=== PATIENT | female | born 1990 | race Two or more races ===

== ENCOUNTER 2024-05-25 08:54 | Emergency (ER) | payer MEDICAID, SELFPAY ==
[2024-05-25 08:59] VITALS: BP 137/84; PULSE 115; RESP 19; TEMP 36.9; O2SAT 100; BMI 27.8
--- NOTE | 2024-05-25 10:02 | EDNOTE_ITS ---
ED Back Injury Pain RME/HPI General Chief Complaint: Back Pain/Injury Stated Complaint: BACK PAIN X 1 DAY; PREG 3 MOS, Time Seen by Provider: 05/25/24 08:57 Source: patient Arrival date/time: 05/25/24 08:54 33-year-old female with no known medical history presents to the emergency room with a chief complaint of lower back pain x 1 day, nausea, vomiting. Patient is currently 12 weeks . She is G4, P3. Patient denies any abdominal cramping, abdominal tenderness, pelvic pain, vaginal bleeding, dysuria. Mode of arrival: ambulatory Limitations: no limitations Related Data Previous Rx's ?Medication ?Instructions ?Recorded acetaminophen 325 mg capsule 650 mg (2 x 325 mg) PO QI D PRN 05/25/24 fever or pain 7 days #30 caps ondansetron 4 mg disintegrating 4 mg PO Q8H PRN nausea and 05/25/24 tablet vomiting #21 tabs Allergies Allergy/AdvReac Type Severity Reaction Status Date / Time No Known Allergies Allergy Verified 05/25/24 09:02 Review of Systems Review of Systems Systems Reviewed: All systems reviewed, normal except as documented Constitutional Constitutional: Reports system reviewed and no additional complaints, except as documented, Denies fatigue, Denies fever(s), Denies headache(s) and Denies weakness Eyes Eyes: Reports system reviewed and no additional complaints, except as documented, Denies blurry vision and Denies change in vision ENT Ears, Nose, Mouth, and Throat: Reports system reviewed and no additional complaints, except as documented, Denies otalgia, Denies headache(s), Denies nasal congestion, Denies throat swelling and Denies vertigo Cardiovascular Cardiovascular: Reports system reviewed and no additional complaints, except as documented, Denies chest pain, Denies dyspnea and Denies dyspnea on exertion Respiratory Respiratory: Reports system reviewed and no additional complaints, except as documented, Denies chest congestion, Denies cough, Denies dyspnea, Denies dyspnea on exertion and Denies wheezing Gastrointestinal Gastrointestinal: Reports system reviewed and no additional complaints, except as documented, Denies abdominal pain, Denies cramping, Denies nausea and Denies vomiting Genitourinary Genitourinary: Reports system reviewed and no additional complaints, except as documented Musculoskeletal Musculoskeletal: Reports system reviewed and no additional complaints, except as documented and Denies back pain Integumentary/Breasts Skin/Breast: Reports system reviewed and no additional complaints, except as documented and Denies wounds Neurologic Neurologic: Reports system reviewed and no additional complaints, except as documented, Denies confusion, Denies headache(s), Denies lack of coordination, Denies vertigo and Denies weakness Psychiatric Psychiatric: Reports system reviewed and no additional complaints, except as documented, Denies anxiety, Denies confusion, Denies depression, Denies paranoia, Denies suicidal ideation and Denies tactile hallucinations Endocrine Endocrine: Reports system reviewed and no additional complaints, except as documented and Denies fatigue Hematologic/Lymphatic Hematologic/Lymphatic: Reports system reviewed and no additional complaints, except as documented and Denies lymphadenopathy Allergic/Immunologic Allergic/Immunologic: Reports system reviewed and no additional complaints, except as documented, Denies throat swelling, Denies urticaria and Denies wheezing Past Medical History Social History SMOKING STATUS: Never smoker ED Exam General Limitations: Present no limitations General appearance: Present alert and in no apparent distress Head Head exam: Present atraumatic Eye Eye exam: Present normal appearance, PERRL and EOMI ENT ENT exam: Present normal exam, normal oropharynx and mucous membranes moist Neck Neck exam: Present normal inspection, full ROM and trachea midline Chest Chest inspection: Present normal inspection and symmetric chest wall rise Respiratory Respiratory exam: Present normal lung sounds bilaterally Cardiovascular Cardiovascular exam: Present regular rate, normal rhythm and normal heart sounds Abdominal Exam Abdominal exam: Present soft and normal bowel sounds Extremities Exam Extremities exam: Present normal inspection and full ROM Back Exam Back exam: Present normal inspection and full ROM Neurological Exam Neurological exam: Present alert, oriented X3 and CN II-XII intact Psychiatric Psychiatric exam: Present normal affect and normal mood Skin Skin exam: Present warm, dry, intact and normal color Course Quality Measures none Vital Signs Vital signs: Vital Signs Temperature 98.4 F 05/25/24 08:59 Pulse Rate 115 H 05/25/24 08:59 Respiratory Rate 19 05/25/24 08:59 Blood Pressure 137/84 H 05/25/24 08:59 Pulse Oximetry (%) 100 05/25/24 08:59 Oxygen Delivery Method Room Air 05/25/24 08:59 Back Pain / Injury MDM Narrative MDM Narrative:: 33-year-old female with no known medical history presents to the emergency room with a chief complaint of lower back pain x 1 day, nausea, vomiting. Patient is currently 12 weeks . She is G4, P3. Patient denies any abdominal cramping, abdominal tenderness, pelvic pain, vaginal bleeding, dysuria. Patient is hemodynamically stable and in no apparent distress Physical examination shows lumbar pain and tenderness to the vertebrae. Patient denies any trauma or fall. Patient denies lifting anything heavy. Patient denies any loss of bowel or bladder function or any numbness to the lower extremities. Patient states she believes her nausea and vomiting are causing her back pain. Patient was seen by her primary care provider which prescribed her nausea medication which the patient states is not working. I switched her medication and sent her some Zofran. I spoke to the patient and told her she needs to establish care with an BUILDING MECHANIC Patient was discharged and educated to follow-up with primary care provider in the next 24 to 48 hours and return to the emergency room for any evidence of wo rsening signs or symptoms Patient data External records reviewed:: [facility] previous records Clinical information provided by:: patient Social determinants that could affect healthcare access:: none Patient has the following chronic illnesses:: No chronic illness How is presenting disease/condition affected by chronic disease/condition?: no chronic disease Evaluation data The following diagnostics were reviewed and interpreted by me:: lab results and radiology exam(s) Lab and/or radiology exams considered but not ordered:: Labs and radiology exams considered and ordered Interpretation Summary: N/A Medications / Prescriptions Medications or Prescriptions considered but not ordered:: Rx given Medication administrations:: Rx given Consultations Consultation(s) initiated? (list below): No Diagnosis Differential diagnosis back pain/injury: lumbar radiculopathy, strain of lumbar region, thoracic back pain and discitis Most likely diagnosis given after review of the tests above:: Strain of lumbar region Admission Indicated Admission indicated?: not indicated Admission Request Was there a request for admission?: No Disposition Plan Disposition Plan: Discharge Discharge Attestation Discharge Attestation: The patient and all family members were given an opportunity to ask questions and understood the discharge instructions. Discharge instructions specifically effects, indications for sooner follow up or return to the emergency department, and the expected course of current diagnosis. Patient condition: Stable Discharge Plan Plan Patient Disposition: HOME (Self Care) Disposition Comment: Stable Prescriptions/Referrals Prescriptions/Med Rec: New ondansetron 4 mg tablet,disintegrating 4 mg PO Q8H PRN (Reason: nausea and vomiting) Qty: 21 0RF acetaminophen 325 mg capsule 650 mg PO QID PRN (Reason: fever or pain) 7 Days Qty: 30 0RF Problem List Clinical Impression: Back pain affecting in first trimester, Nausea and vomiting during Patient/Caregiver Discharge Instructions Education Materials: ED Back Pain (Acute or Chronic), ED Vomiting (Adult) Additional Instructions: Please follow-up with your BUILDING MECHANIC in the next 24 to 48 hours. I sent over medication to help you with your back pain as well as your vomiting. I believe controlling her vomiting will control and help alleviate your back pain. For any evidence of worsening signs or symptoms return the emergency room immediately Print Language: Setswana Stand Alone Forms: Yen Award Info., Patient Portal Info Letter PA/RESIDENTIAL TREATMENT SPECIALIST Supervising Physician PA/RUBY Supervising Physician: Dr. Castelan
== END 2024-05-25 09:37 | disposition home or self-care (01) ==
LOC: SERX 09:48
PROVIDERS: Emergency Provider Emergency Medicine
DX: O26.891 Other specified pregnancy related conditions, first trimester (principal); Z3A.12 12 weeks gestation of pregnancy; M54.50 Low back pain, unspecified; O21.9 Vomiting of pregnancy, unspecified
CPT/HCPCS: 99281